=== PATIENT | male | born 1945 | race Caucasian/White ===

== ENCOUNTER 2016-11-27 23:39 | Emergency (ER) | payer OTHER, BC ==
[~2016-11-27] VITALS: Ht 180.3 cm; Wt 101.4 kg
[~2016-11-27 23:39] MED LIST: ALPRAZOLAM0.25 MG PO; ASPIR-LOW81 MG PO; ASPIRIN325 MG PO; ATORVASTATIN CA40 MG PO; CIALIS10 MG PO; COZAAR100 MG PO; FIBER500 MG PO; FINASTERIDE5 MG PO; FISH OIL 1,0001 EAC7 PO; FISH OIL300 MG PO; FLONASE16 G1 BOTH NARES; GLYBURIDE1.25 MG PO; HYDROCHLOROTHIA25 MG PO; IBUPROFEN800 MG PO; JANUVIA100 MG PO; LANTUS 3 M100 UNITS1 SC; LIPITOR40 MG PO; MEVACOR40 MG PO; MICRONASE5 MG PO; NORVASC5 MG PO; OMEPRAZOLE40 M1 PO; PAXIL20 MG PO; PAXIL30 MG PO; PRILOSEC40 MG PO; SAW PALMETTO500 MG PO; XANAX0.25 MG PO
[2016-11-27 23:42] VITALS: BP 166/82
[2016-11-28 00:09] LABS: POINT-OF-CARE METER ID UU13113778
[2016-11-28 00:50] LABS: POINT-OF-CARE METER ID UU13113778
[2016-11-28 02:27] LABS: HEMATOCRIT 37.4 % (38.0-50.0); MCH 30.7 PG (29.0-34.0); MCHC 34.2 G/DL (30.0-36.0); MCV 89.7 FL (86-99); MEAN PLAT.VOLUME 9.5 uM^3 (9.0-12.4); PLATELET COUNT 185 K/uL (156-360); RBC DIS.WIDTH-CV 11.9 % (11.8-14.6); RBC DIS.WIDTH-SD 38.1 % (39-53); RED BLOOD COUNT 4.17 M/uL (4.00-5.50)
[2016-11-28 02:29] LABS: WHITE BLOOD COUNT 9.2 K/uL (4.1-10.2)
[2016-11-28 02:38] LABS: CHLORIDE 102 mEq/L (99-109); SODIUM 135 mEq/L (136-147)
[2016-11-28 02:39] LABS: GLUCOSE 172 mg/dL (70-99)
[2016-11-28 02:41] LABS: ANION GAP 9 MEQ/L (2-14)
[2016-11-28 02:43] LABS: GFR ESTIMATE (CALCULATED) > 59 mL/min/
[2016-11-28 02:44] LABS: UREA NITROGEN (BUN) 20 mg/dL (9-23)
[2016-11-28 07:37] LABS: Estimated Average Glucose 174 mg/dL (70-123); HEMOGLOBIN A1c (GLYCOHEMOGLOB) 7.7 % HGB (Below 5.7)
== END 2016-11-28 03:15 | disposition home or self-care (01) ==
LOC: EME 23:39
PROVIDERS: Emergency Medicine
DX: T38.3X1A Poisoning by insulin and oral hypoglycemic [antidiabetic] drugs, accidental (unintentional), initial encounter (principal); F41.1 Generalized anxiety disorder; F32.2 Major depressive disorder, single episode, severe without psychotic features; E11.9 Type 2 diabetes mellitus without complications; Z79.4 Long term (current) use of insulin; E78.5 Hyperlipidemia, unspecified; I10 Essential (primary) hypertension
CPT/HCPCS: 80048; 82948; 83036; 85027; 99281; 99284